=== PATIENT | male | born 2000 | race Caucasian/White ===

== ENCOUNTER 2021-12-07 16:23 | Inpatient (IN) ==
[2021-12-07 17:37] LABS: Basophils # (auto) 0.03 K/uL (0-0.2); Basophils % (auto) 0.9 %; Eosinophils # (auto) 0.04 K/uL (0-0.50); Eosinophils % (auto) 1.2 %; Hematocrit (blood only) 44.6 % (40.1-51.0); Hemoglobin 14.9 g/dl (14.0-18.0); Immature Granulocytes # (auto) 0.01 K/uL (0.00-0.02); Immature Granulocytes % (auto) 0.3 %; Lymphocytes # (auto) 0.41 K/uL (1.2-3.4); Lymphocytes % (auto) 11.9 %; Mean Corpuscular Hgb Conc 33.4 g/dL (32.0-36.0); Mean Corpuscular Volume 86.9 fL (80.0-100.0); Mean Platelet Volume 10.4 fL (9.4-12.4); Monocytes # (auto) 0.75 K/uL (0.24-0.82); Monocytes % (auto) 21.7 %; Neutrophils # (auto) 2.21 K/uL (1.4-6.5); Platelet Count 229 K/uL (130-400); RDW Coefficient of Variation 13.2 % (11.5-14.5); Red Blood Count 5.13 M/uL (4.63-6.08); White Blood Count 3.45 K/ul (4.8-10.8)
--- NOTE | 2021-12-07 17:51 | XRay Report ---
TWO VIEW CHEST CLINICAL HISTORY: Covid. FINDINGS: PA and lateral chest radiographs are obtained. No prior studies are available for compariso n at the time of dictation. The cardiomediastinal silhouette is unremarkable. The lungs and pleural spaces are clear. There is no pneumothorax. The bony thorax appears intact. IMPRESSION: No active disease in the chest. ACT 112: Negative or not required by law. Electronically signed by: Kaden Rodríguez M.D. 12/07/2021 5:49 PM
[2021-12-07 17:57] LABS: Albumin Globulin Ratio 1.5 (0.9-2); Albumin Level 4.5 gm/dl (3.4-5.0); BUN Creatinine Ratio 7.5 (10-20); Bilirubin,Total 0.8 mg/dl (0.2-1.0); Calcium 9.4 mg/dl (8.5-10.1); Creatinine Clr Calc Pharmacy 115.8 ml/min; Est GFR (African American) 114.4 ml/min; Est GFR (Non-African American) 98.7 ml/min; Globulin 3.1 gm/dl (2.5-4.0); Potassium 4.2 mmol/L (3.5-5.1); Total Protein 7.6 gm/dl (6.0-8.3)
[2021-12-07] MEDS ORDERED: SODIUM CHLORIDE 0.9% 1000ML 2,000 ML IV ONE (18:19)
--- NOTE | 2021-12-07 18:34 | Emergency Department Note ---
History of Present Illness General Chief complaint: Flu Like Symptoms Stated complaint: + COVID TEST DIAG WITH RHABDOMYOLYSIS Time Seen by Provider: 12/07/21 18:05 History of Present Illness 21-year-old male presents to the ED after being diagnosed with COVID and rhabdomyolysis by [facility]. The patient went there today for some cold symptoms and general myalgias and achiness. A positive COVID test at [facility] as well as a total CK of over 14,000 was found today on [facility] laboratory testing. For this reason he was sent here. He denies any significant activity recently. He did go to the gym and workout for about 30 minutes on Saturday. No other issues. Past Med/Surg History Social History Smoking Status: Never smoker Preferred Language: [place] Feels Safe at Home: Yes Review of Systems A total of 10 systems reviewed and were otherwise negative Physical Exam Vital Signs Vital Signs - 24 hr 12/07/21 17:21 Temperature 37.0 C Temperature Source Temporal Artery Scan Pulse Rate 67 Respiratory Rate 18 Blood Pressure 116/70 Blood Pressure Mean 85 Pulse Oximetry 99 Oxygen Delivery Method Room Air Sepsis New/Unexplained Change in Mental Status No Sepsis Action Taken by Nursing No Action Required CONSTITUTIONAL/VITAL SIGNS: Reviewed / noted above. GENERAL: Non-toxic in appearance. INTEGUMENTARY: Warm, dry, and Cle[place]. HEAD: Normocephalic. EYES: without scleral icterus or trauma. ENT/OROPHARYNX: clear and moist. LYMPHADENOPATHY/NECK: Is supple without lymphadenopathy or meningismus. RESPIRATORY: Clear to auscultation bilaterally. No increased work of breathing. CARDIOVASCULAR: Regular rate and rhythm. GI/ABDOMEN: Soft and nontender. No organomegaly or pulsatile mass. EXTREMITIES: Warm and well perfused. BACK: No CVA tenderness. NEUROLOGICAL: Intact without focal deficits. PSYCHIATRIC: normal affect. MUSCULOSKELETAL: Normally developed with good muscle tone. TRIAGE NURSING DOCUMENTATION REVIEWED. Course Administered Medications Sodium Chloride (Nss 1000ml) 2,000 mls @ 999 mls/hr IV .Q2H1M ONE Stop: 12/07/21 20:19 Last Admin: 12/07/21 19:06 Dose: 999 mls/hr Documented By: CARMELLA Medical Decision Making Differential Diagnosis Differential includes acute coronary syndrome, myocardial infarction, CVA, TIA, anemia, infection, pneumonia, UTI, pyelonephritis, poor nutrition, dehydration, electrolyte disturbance,hypoglycemia. Medical Records Attestation: I reviewed the patient's medical records. Home Medications Current Medication List: was personally reviewed by me Laboratory Data Attestation: I reviewed the patient's lab results. Result diagrams: 12/07/21 15:27 12/07/21 15:27 Lab Results 12/07/21 12/07/21 12/07/21 Range/Units 15:27 15: 15: WBC 3.45 L (4.8-10.8) K/ul RBC 5.13 (4.63-6.08) M/uL Hgb 14.9 (14.0-18.0) g/dl Hct 44.6 (40.1-51.0) % MCV 86.9 (80.0-100.0) fL MCH 29.0 (25.0-34.0) pg MCHC 33.4 (32.0-36.0) g/dL RDW Std Deviation 42.0 (36.4-46.3) fL RDW Coeff of Rola 13.2 (11.5-14.5) % Plt Count 229 (130-400) K/uL MPV 10.4 (9.4-12.4) fL Immature Gran % (Auto) 0.3 % Neut % (Auto) 64.0 % Lymph % (Auto) 11.9 % Morrow % (Auto) 21.7 % Eos % (Auto) 1.2 % Baso % (Auto) 0.9 % Neut # (Auto) 2.21 (1.4-6.5) K/uL Lymph # (Auto) 0.41 L (1.2-3.4) K/uL Morrow # (Auto) 0.75 (0.24-0.82) K/uL Eos # (Auto) 0.04 (0-0.50) K/uL Baso # (Auto) 0.03 (0-0.2) K/uL Immature Gran # (Auto) 0.01 (0.00-0.02) K/uL Sodium 137 (136-145) mmol/L Potassium 4.2 (3.5-5.1) mmol/L Chloride 101 (98-107) mmol/L Carbon Dioxide 28 (21-32) mmol/L Anion Gap 8 (3-11) BUN 8 (6-23) mg/dl Creatinine 1.07 (0.6-1.4) mg/dl Est Cr Clr Drug Dosing 115.8 ml/min Est GFR ( Amer) 114.4 ml/min Est GFR (Non-Af Amer) 98.7 ml/min BUN/Creatinine Ratio 7.5 L (10-20) Glucose 88 (70-99(Fasting)) mg/dl Calcium 9.4 (8.5-10.1) mg/dl Total Bilirubin 0.8 (0.2-1.0) mg/dl AST 176 H (13-39) U/L ALT 75 H (7-52) U/L Alkaline Phosphatase 55 (34-104) U/L Total Creatine Kinase 45221 H (30-223) U/L Total Protein 7.6 (6.0-8.3) gm/dl Albumin 4.5 (3.4-5.0) gm/dl Globulin 3.1 (2.5-4.0) gm/dl Albumin/Globulin Ratio 1.5 (0.9-2) Imaging Data Radiologist's Impression: Chest X-Ray 12/07/21 17:28 TWO VIEW CHEST CLINICAL HISTORY: Covid. FINDINGS: PA and lateral chest radiographs are obtained. No prior studies are av ailable for comparison at the time of dictation. The cardiomediastinal silhouette is unremarkable. The lungs and pleural spaces are clear. There is no pneumothorax. The bony thorax appears intact. IMPRESSION: No active disease in the chest. ACT 112: Negative or not required by law. Electronically signed by: Kaden Rodríguez M.D. 12/07/2021 5:49 PM MDM Narrative 21-year-old male presents with a chief complaint of COVID symptoms. He was diagnosed with COVID earlier today at [facility]. He was also diagnosed with rhabdomyolysis with a CK of over 14,000. The patient's exam today was unremarkable. CBC and chemistry panel here today was unremarkable. A chest x- ray was negative for acute disease. Total CK this evening is a little over 10,000. The patient was hydrated with IV fluids. He will be seen by the hospitalist for further evaluation. Impression & Plan Non-traumatic rhabdomyolysis Discharge Plan Visit Data Chief Complaint: Flu Like Symptoms Stated Complaint: + COVID TEST DIAG WITH RHABDOMYOLYSIS ED Provider: Fletcher Knight Discharge Problem: Non-traumatic rhabdomyolysis Patient Disposition: Being Evaluated by Hospitalist Forms Stand Alone Forms: My [facility] Referrals Referrals: PCP,NO [Primary Care Provider] -
--- NOTE | 2021-12-07 19:58 | History & Physical Report ---
Date of Service December 07, 2021 Assessment & Plan (1) Non-traumatic rhabdomyolysis: Plan: 21yo male presenting with exertional rhabdomyolysis following weight lifting, less likely viral myositis in setting of Covid-19 infection. Patient with no prior history of rhabdomyolysis, no supplements or OTC meds. CK=10,208. Elevation of LFTs (TLU=661, ALT=75) most likely secondary to rhabdomyolysis as well. Renal function is intact. -Admit to medical -IV hydration with LR at 200mL/hr x 3 liters -Monitor UOP - goal 200 -300 mL/hr -Repeat CK and LFTs in AM -Check UA (2) COVID-19: Plan: Patient with fever and mild SOB last evening. Covid-19 POSITIVE at [facility] prior to arrival. He is not vaccinated. No underlying medical comorbidities. Normal BMI. Afebrile at present. HD stable with no respiratory complaints. Adequate oxygenation of 97% on room air. CXR without infiltrates. 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 Patient worked out 3 days ago - lifted at the gym mostly with arms. He works out fairly frequently but did not work out much over the summer. He does not report overdoing it or lifting particularly heavy weights. He had soreness of his arms, back and legs the following day which intensified the day after. He felt that his biceps were slightly swollen and he was unable to fully extend his forearm due to muscle soreness and tightness. Also with pain in his legs. Last evening he developed a fever as well as mild shortness of breath. He was seen at [facility] and was diagnosed with COVID-19 infection a well as elevated CK/Rhabdomyolysis. He was subsequently referred to the ER. Patient is not vaccinated against Covid-19. He has not had the illness before to his knowledge. He denies chest pain, cough, loss of taste or smell, vomiting or diarrhea. He is urinating without difficulty, no change in urine color. No additional complaints at this time. In the ER patient afebrile, HD stable, NAD ER Course: Tylenol 650mg, NSS x 2 liters Allergies Allergy/AdvReac Type Severity Reaction Status Date / Time No Known Allergies Allergy Unverified 12/07/21 20:54 Home Medications Medication Instructions Recorded Confirmed Type No Known Home Medications 12/07/21 12/07/21 History Past Med/Surg History Medical History (Updated 12/07/21 @ 23:17 by Martha Yi DO) No significant past medical history Surgical History (Updated 12/07/21 @ 23:15 by Martha Yi DO) History of wisdom tooth extraction Family History (Updated 12/07/21 @ 23:15 by Martha Yi DO) Other No significant family history Social History (Updated 12/07/21 @ 23:15 by Martha Yi DO) Smoking Status: Never smoker Do You Dip or Chew Tobacco: No; Hx Alcohol Use: Yes Alcohol type: beer and hard liquor Hx Substance Use: No Preferred Language: Wolof Communication Ability: Effective [employer] Required: No Beliefs That Will Affect Care: None Current Living Situation: Other Current Living Situation Comment: [facility] [place] Other Information That Helps Us Care for You: No Feels Safe at Home: Yes Safety Concerns: Feels Safe At This Time Review of Systems Review of Systems: All systems reviewed & are unremarkable except as noted in HPI & below Physical Exam Physical Exam: General: patient resting comfortably, NAD, non-toxic in appearance, AA&O x 4 Skin: warm, dry, intact, no rashes or lesions HEENT: NC/AT, PERRL, EOMI, anicteric sclera, conjunctiva without injection, external ear normal to inspection and nontender, nares patent, moist mucus membranes, dentition intact, no oropharyngeal lesions, neck supple, trachea midline, no LAD, no thyromegaly, no JVD Heart: +S1/S2, regular, no m/r/g Lungs: equal air entry bilaterally, no rales/rhonchi/wheezes Abd: +BS, soft, NT/ND, no masses/organomegaly/ascites Ext: warm, 2+ pulses in UE/LE bilaterally, no clubbing/cyanosis, mild bogginess of biceps muscles bilaterally with tenderness to palpation, compartment is soft, extremities with 2+ pulses, warm ad well perfused Neuro: nonfocal, patient AA&O x 4, speech intact, no facial droop, moving all extremities on command with equal strength 5/5 Results & Data Results & Data ([facility]) Vital Signs (Past 12 Hours) Vital Signs Temp Pulse Pulse Resp BP Pulse Ox O2 Del Method 12/07/21 19:47 38.3 C H 68 16 98 12/07/21 17:21 37.0 C 67 18 116/70 99 Room Air Laboratory Results Laboratory Results WBC 3.45 K/ul (4.8-10.8) L 12/07/21 15: RBC 5.13 M/uL (4.63-6.08) 12/07/21 15: Hgb 14.9 g/dl (14.0-18.0) 12/07/21 15: Hct 44.6 % (40.1-51.0) 12/07/21 15: MCV 86.9 fL (80.0-100.0) 12/07/21 15: MCH 29.0 pg (25.0-34.0) 12/07/21 15: MCHC 33.4 g/dL (32.0-36.0) 12/07/21 15: RDW Std Deviation 42.0 fL (36.4-46.3) 12/07/21 15: RDW Coeff of Rola 13.2 % (11.5-14.5) 12/07/21 15: Plt Count 229 K/uL (130-400) 12/07/21 15: MPV 10.4 fL (9.4-12.4) 12/07/21 15:27 Immature Gran % (Auto) 0.3 % 12/07/21 15:27 Neut % (Auto) 64.0 % 12/07/21 15: Lymph % (Auto) 11.9 % 12/07/21 15: [place]hin % (Auto) 21.7 % 12/07/21 15: Eos % (Auto) 1.2 % 12/07/21 15: Baso % (Auto) 0.9 % 12/07/21 15: Neut # (Auto) 2.21 K/uL (1.4-6.5) 12/07/21 15:27 Lymph # (Auto) 0.41 K/uL (1.2-3.4) L 12/07/21 15:27 [place]hin # (Auto) 0.75 K/uL (0.24-0.82) 12/07/21 15:27 Eos # (Auto) 0.04 K/uL (0-0.50) 12/07/21 15: Baso # (Auto) 0.03 K/uL (0-0.2) 12/07/21 15: Immature Gran # (Auto) 0.01 K/uL (0.00-0.02) 12/07/21 15: Sodium 137 mmol/L (136-145) 12/07/21 15: Potassium 4.2 mmol/L (3.5-5.1) 12/07/21 15: Chloride 101 mmol/L (98-107) 12/07/21 15: Carbon Dioxide 28 mmol/L (21-32) 12/07/21 15: Anion Gap 8 (3-11) 12/07/21 15: BUN 8 mg/dl (6-23) 12/07/21 15: Creatinine 1.07 mg/dl (0.6-1.4) 12/07/21 15: Est Cr Clr Drug Dosing 115.8 ml/min 12/07/21 15: Est GFR ( Amer) 114.4 ml/min 12/07/21 15: Est GFR (Non-Af Amer) 98.7 ml/min 12/07/21 15: BUN/Creatinine Ratio 7.5 (10-20) L 12/07/21 15: Glucose 88 mg/dl (70-99(Fasting)) 12/07/21 15: Calcium 9.4 mg/dl (8.5-10.1) 12/07/21 15: Total Bilirubin 0.8 mg/dl (0.2-1.0) 12/07/21 15:27 AST 176 U/L (13-39) H 12/07/21 15:27 ALT 75 U/L (7-52) H 12/07/21 15:27 Alkaline Phosphatase 55 U/L (34-104) 12/07/21 15: Total Creatine Kinase 31744 U/L (30-223) H 12/07/21 15:27 Total Protein 7.6 gm/dl (6.0-8.3) 12/07/21 15:27 Albumin 4.5 gm/dl (3.4-5.0) 12/07/21 15:27 Globulin 3.1 gm/dl (2.5-4.0) 12/07/21 15:27 Albumin/Globulin Ratio 1.5 (0.9-2) 12/07/21 15:27 SARS-CoV-2 (PCR) POSITIVE (Negative) A* 12/07/21 19:53 Impressions Chest X-Ray 12/07/21 17:28 TWO VIEW CHEST CLINICAL HISTORY: Covid. FINDINGS: PA and lateral chest radiographs are obtained. No prior studies are available for comparison at the time of dictation. The cardiomediastinal silhouette is unremarkable. The lungs and pleural spaces are clear. There is no pneumothorax. The bony thorax appears intact. IMPRESSION: No active disease in the chest. ACT 112: Negative or not required by law. Electronically signed by: Kaden Rodríguez M.D. 12/07/2021 5:49 PM Code Status & VTE Plan VTE Prophylaxis Plan VTE Prophylaxis will be ordered: Yes PG Care Time/CCT Total # of Minutes Spent Total Time Spent with Patient: Total time spent is greater than 50% in coordination of care (as documented) at patient's floor/unit and/or counseling patient: Coding Level of Care Code 23708 Initial Inpt Care Lvl 2 Diagnoses Non-traumatic rhabdomyolysis M62.82 COVID-19 U07.1
[2021-12-07] MEDS ORDERED: ACETAMINOPHEN 325 MG TAB PO STA (20:01)
[2021-12-07] MEDS ORDERED: ONDANSETRON INJ 2 MG/ML 2 ML VIAL IV PRN (22:56)
[2021-12-07] MEDS ORDERED: ACETAMINOPHEN 325 MG TAB PO PRN (22:56)
[2021-12-07] MEDS: LACTATED RINGER'S 1,000 ML IV SCH (23:21)
[2021-12-08] MEDS: LACTATED RINGER'S 1,000 ML IV SCH ×4 (04:16→19:30)
[2021-12-08 04:31] LABS: Appearance Urine Clear (Clear); Bilirubin Urine Negative (Negative); Blood Urine Negative (Negative); Color Urine Yellow; Glucose Urine UA Negative (Negative); Ketones Urine Negative (Negative); Leukocyte Esterase Urine Negative (Negative); Nitrite Urine Negative (Negative); Protein Urine Negative (Negative); Specific Gravity Urine 1.008 (1.000-1.030); Urobilinogen Urine Negative (Negative)
[2021-12-08 08:51] LABS: Basophils # (auto) 0.02 K/uL (0-0.2); Basophils % (auto) 0.6 %; Eosinophils # (auto) 0.11 K/uL (0-0.50); Eosinophils % (auto) 3.6 %; Hematocrit (blood only) 39.5 % (40.1-51.0); Hemoglobin 13.2 g/dl (14.0-18.0); Lymphocytes # (auto) 0.91 K/uL (1.2-3.4); Lymphocytes % (auto) 29.4 %; Mean Corpuscular Hemoglobin 29.3 pg (25.0-34.0); Mean Corpuscular Hgb Conc 33.4 g/dL (32.0-36.0); Mean Corpuscular Volume 87.6 fL (80.0-100.0); Mean Platelet Volume 10.5 fL (9.4-12.4); Monocytes # (auto) 0.72 K/uL (0.24-0.82); Monocytes % (auto) 23.3 %; Neutrophils # (auto) 1.33 K/uL (1.4-6.5); Neutrophils % (auto) 43.1 %; Platelet Count 201 K/uL (130-400); RDW Coefficient of Variation 13.5 % (11.5-14.5); RDW Standard Deviation 43.1 fL (36.4-46.3); Red Blood Count 4.51 M/uL (4.63-6.08); White Blood Count 3.09 K/ul (4.8-10.8)
[2021-12-08 09:24] LABS: Albumin Level 3.4 gm/dl (3.4-5.0); Bilirubin Direct 0.1 mg/dl (0-0.2); Bilirubin,Total 0.5 mg/dl (0.2-1.0); Calcium 8.5 mg/dl (8.5-10.1); Creatinine Clr Calc Pharmacy 139.9 ml/min; Est GFR (African American) 142.3 ml/min; Est GFR (Non-African American) 122.8 ml/min; Total Protein 5.9 gm/dl (6.0-8.3)
--- NOTE | 2021-12-08 11:21 | Hospitalist Progress Note ---
Date of Service December 08, 2021 Assessment & Plan (1) Non-traumatic rhabdomyolysis: Plan: 21yo male presenting with exertional rhabdomyolysis following weight lifting, less likely viral myositis in setting of Covid-19 infection. Patient with no prior history of rhabdomyolysis, no supplements or OTC meds. CK=10,208. Elevation of LFTs (GBT=962, ALT=75) most likely secondary to rhabdomyolysis as well. Renal function is intact. -In the setting of weightlifting while acutely infected with COVID-19. -Continue aggressive hydration therapy with lactated Ringer's at 200 cc/h -Daily creatine kinase, BMP -Trend CK, currently at 5916 (12/08) -UA negative for urine blood indicating good prognosis (2) COVID-19: Plan: Patient with fever and mild SOB last evening. Covid-19 POSITIVE at [facility] prior to arrival. He is not vaccinated. No underlying medical comorbidities. Normal BMI. Afebrile at present. HD stable with no respiratory complaints. Adequate oxygenation of 97% on room air. CXR without infiltrates. -Maintain isolation precautions -Monitor oxygen saturation - presently no indication for treatment -Supportive care -Consider COVID vaccination 90 days post infection F/E/N - LR at 200mL/hr Ppx - Lovenox 40 Code - Full Dispo -MedSurg with isolation precautions Admission and Anticipated Discharge Date Admission Date: December 07, 2021 Supervising Physician Co-Signing Physician Notes Resident Physician Supervision Note: I independently interviewed and examined the patient and verified the green history and physical, reviewed labs and image studies and agree with resident Dr. Mendieta findings and care plan. Subjective Seen at bedside this morning. No acute events reported overnight. Patient reports improvement in his pain but is still fatigued. Seems to be nontraumatic rhabdo in the setting of weightlifting and acute COVID-19 infection. Patient denies any cold-like symptoms. Denies shortness of breath, nausea, vomiting, or chest pain. Patient has not noticed any change in his urine color. Having good output without pain with urination. Otherwise no other complaints at this time. Review of Systems Review of Systems: All systems reviewed & are unremarkable except as noted in HPI & below Physical Exam Constitutional: WD/WN, vitals as above Eyes: + anicteric sclerae Neck: trachea midline, no thyromegaly Respiratory: normal respiratory effort, lungs clear to auscultation Cardiovascular: RRR, no murmur, no edema Gastrointestinal (Abdomen): normal bowel sounds, soft, nontender, no hepatosplenomegaly Musculoskeletal: Head/Neck/Chest: normocephalic and head atraumatic Skin: no rashes, warm and dry Neurologic: moves all extremities Psychiatric: A+Ox3, euthymic affect Results & Data Results & Data ([facility]) Vital Signs (Past 12 Hours) Vital Signs Temp Pulse Resp BP Pulse Ox O2 Del Method 12/08/21 06:19 36.7 C 61 18 107/65 96 Room Air
[2021-12-08] MEDS: ENOXAPARIN INJ 40 MG/0.4 ML SYR SQ SCH (12:53)
[2021-12-09] MEDS: LACTATED RINGER'S 1,000 ML IV SCH ×3 (00:57→10:27)
[2021-12-09] MEDS: ENOXAPARIN INJ 40 MG/0.4 ML SYR SQ SCH (08:34)
[2021-12-09 09:15] LABS: BUN Creatinine Ratio 12.5 (10-20); Calcium 8.7 mg/dl (8.5-10.1); Creatinine Clr Calc Pharmacy 139.9 ml/min; Est GFR (African American) 142.3 ml/min; Est GFR (Non-African American) 122.8 ml/min; Potassium 4.1 mmol/L (3.5-5.1)
--- NOTE | 2021-12-09 12:16 | Discharge Summary ---
Date of Service December 09, 2021 Admission HPI Per Admitting Provider Narendra aNsh is a 21yo male [employer] student presenting with Covid-19 infection and rhabdomyolysis. Patient worked out 3 days ago - lifted at the gym mostly with arms. He works out fairly frequently but did not work out much over the summer. He does not report overdoing it or lifting particularly heavy weights. He had soreness of his arms, back and legs the following day which intensified the day after. He felt that his biceps were slightly swollen and he was unable to fully extend his forearm due to muscle soreness and tightness. Also with pain in his legs. Last evening he developed a fever as well as mild shortness of breath. He was seen at [facility] and was diagnosed with COVID-19 infection a well as elevated CK/Rhabdomyolysis. He was subsequently referred to the ER. Patient is not vaccinated against Covid-19. He has not had the illness before to his knowledge. He denies chest pain, cough, loss of taste or smell, vomiting or diarrhea. He is urinating without difficulty, no change in urine color. No additional complaints at this time. In the ER patient afebrile, HD stable, NAD ER Course: Tylenol 650mg, NSS x 2 liters Admission Exam Per Admitting Provider General: patient resting comfortably, NAD, non-toxic in appearance, AA&O x 4 Skin: warm, dry, intact, no rashes or lesions HEENT: NC/AT, PERRL, EOMI, anicteric sclera, conjunctiva without injection, external ear normal to inspection and nontender, nares patent, moist mucus membranes, dentition intact, no oropharyngeal lesions, neck supple, trachea midline, no LAD, no thyromegaly, no JVD Heart: +S1/S2, regular, no m/r/g Lungs: equal air entry bilaterally, no rales/rhonchi/wheezes Abd: +BS, soft, NT/ND, no masses/organomegaly/ascites Ext: warm, 2+ pulses in UE/LE bilaterally, no clubbing/cyanosis, mild bogginess of biceps muscles bilaterally with tenderness to palpation, compartment is soft, extremities with 2+ pulses, warm ad well perfused Neuro: nonfocal, patient AA&O x 4, speech intact, no facial droop, moving all extremities on command with equal strength 5/5 Principal Diagnosis Rhabdomyolysis with COVID 19 Discharge Exam Constitutional WD/WN, vitals as above Eyes PERRL, conjunctivae normal, anicteric sclerae ENMT external ear and nose normal, oropharynx normal Neck trachea midline, no thyromegaly Respiratory normal respiratory effort, lungs clear to auscultation Cardiovascular RRR, no murmur, no edema Chest (Breasts) normal inspection/palpation of breasts Gastrointestinal (Abdomen) normal bowel sounds, soft, nontender, no hepatosplenomegaly Skin no rashes, warm and dry Discharge Data Allergies Allergy/AdvReac Type Severity Reaction Status Date / Time No Known Allergies Allergy Unverified 12/07/21 20:54 Consultations 12/07/21 19:28 ED Decision to Admit Stat Hospital Course (1) Non-traumatic rhabdomyolysis: 21yo male presenting with exertional rhabdomyolysis following weight lifting, less likely viral myositis in setting of Covid-19 infection. Patient with no prior history of rhabdomyolysis, no supplements or OTC meds. CK=10,208 on admit, downtrended to 3830. Elevation of LFTs (GGJ=295, ALT=75) also downtrending, most likely secondary to rhabdomyolysis as well. UA negative for blood. Renal function is intact. Patient treated with aggressive IV hydration. Repeat CMP CK Saturday in outpatient. Patient to continue oral hydration and follow up with PCP. (2) COVID-19: Patient with fever and mild SOB last evening. Covid-19 POSITIVE at [facility] prior to arrival. He is not vaccinated. No underlying medical comorbidities. Normal BMI. Afebrile at present. HD stable with no respiratory complaints. Adequate oxygenation of 97% on room air. CXR without infiltrates. Started isolation precautions. Fever resolved. Consider COVID vaccination 90 days post infection Total Time Total Time Spent Total Time Spent (In Minutes): 30 min Discharge Plan Discharge Items Patient Disposition: Home - Self-Care Reason For Visit: COVID-19, RHABDO Discharge Diagnosis: Rhabdomyolisis with COVID-19 Activity: Resume your previous activity Non-emergency contact: Primary Care Provider Call non-emergency contact if: your symptoms worsen, your pain is worsening and you have a fever Follow-up/Referrals: [place] [Primary Care Provider] - Diet: Regular Fluids: 2000ml (8 cups) Addtl Attending Provider Instructions: You were admitted to the hospital for Rhabdomyolysis, which is breakdown of your muscles after excess stress. This may have been due to a combination of exercise and COVID-19. You were treated with IV fluids. After you go home, please continue to drink plenty of fluids, and have your labs rechecked on Saturday. Your labs on Saturday should look at the performance of your kidneys and liver, as well as the level of Creatine Kinase enzyme (marker for muscle damage) in your blood stream. A discharge summary will be sent to your primary care physician to ensure continuity of care. Please bring this discharge summary with you to your next office appointment so that your provider can review it at that time. Follow-up appointments: Make a follow-up appointment with your PCP within the next week. It is very important that you follow up with them shortly after discharge from the hospital. Keep all your follow-up appointments as already scheduled. If you cannot make an appointment, notify your provider. Medications: Your medication list has been reviewed and reconciled upon discharge to ensure accuracy and continuity of care. An updated list of all your medications is included with your hospital discharge paperwork. Please review this list closely, and make note of any changes. Take your medications as instructed; do not skip a dose of your medicines. Make sure all of your doctors know every medicine you are taking (including ov [id number] medicines, vitamins, and supplements). Call your primary care provider before taking any new medicines (including [id number]-ermfzed medicines, vitamins, and supplements), because some of these may interact with your current medications, or may make your symptoms worse. Tell your primary care provider if you cannot afford your medications. CONTACT YOUR PRIMARY CARE PROVIDER if you experience any of the following: Increased muscle pain, rash, joint stiffness Fever, chills, difficulty breathing Difficulty following your treatment plan, or difficulty taking medications CALL 911 OR GO TO THE EMERGENCY DEPARTMENT if you experience any of the following: Sudden, severe abdominal pain or nausea/vomiting Severe chest pain, or chest pain that radiates (moves) to your jaw or arm Sudden, severe shortness of breath or difficulty breathing Thank you for allowing us to participate in your care. Pending Studies at Discharge: No Stand-Alone Forms: My [facility] [employer], Smoking Cessation Medications and DC Order Prescriptions: No Action No Known Home Medications Discharge Orders: Discharge Order (Routine); Ordered 12/09/21 Ordered By: Katt Cheney Admission Data Admit Date/Time: 12/07/21 19:57 Attending Provider: Obdulio Munroe Admit Provider: Martha Yi Primary Care Provider: [facility] Other Providers: Martha Yi Supervising Physician Co-Signing Physician Notes I also saw the patient confirmed green portions of the history and physical examination. I agree with the impression and plan as noted in the resident documentation. Upon our midmorning exam, the patient was resting comfortably in bed, talking on his phone and working on his computer. He really had no complaints at present except for some very mild tenderness of his biceps bilaterally. He denies any URI symptoms such as cough or shortness of breath. His total creatinine kinase continues to trend down. His renal function is normal, electrolytes within normal limits. Suspect that his rhabdomyolysis may be combination of COVID-19 and a return to weightlifting after a prolonged break. Given his improving numbers and well appearance, okay for discharge today. We will give him additional IV fluids until approximately 3 PM, then discharge. Continue oral hydration; monitor urine output for quantity and color. He will be placed in a quarantine dormitory at [facility]; will arrange for repeat CMP and creatinine kinase on Saturday. Discussed signs and symptoms for which to monitor. Advised him to avoid any strenuous activity between now on Saturday; he should not resume exercise until reevaluated by his PCP. Resident Activity Tracking Resident Involvement: Resident Care Provided Care Provided: Adult Hospital Medicine
== END 2021-12-09 16:05 | disposition home or self-care (01) | DRG 178 ==
LOC: ED 16:23 → 3E 19:57 → SUATTDRO 19:57 → 3E 12-08 00:44